=== PATIENT | male | born 1935 | race Caucasian/White ===

== ENCOUNTER 2017-03-13 08:55 | Inpatient (IN) | payer MEDICARE, OTHER ==
[~2017-03-13] VITALS: Ht 170.2 cm; Wt 62.5 kg
[~2017-03-13 08:55] MED LIST: AMLO-147 PO; ATOR20TA38 PO; COU2 PO; FURO40TA4 PO; ISOS60TA PO; MAGN400T28 PO; METO25TA7 PO; TAMS-14 PO; TRAM50TA2 PO
--- NOTE | 2017-03-13 09:40 | RADRPT ---
PROCEDURE: XR Chest. CLINICAL INDICATION: shortness of breath TECHNIQUE: Single portable view of the chest was obtained COMPARISON: 12/07/2015 FINDINGS: There is moderate cardiomegaly. The thoracic aorta is calcified. There is mild pulmonary vascular congestion. There are bilateral perihilar and lower lobe infiltrat es and small bilateral pleural effusions. There is no pneumothorax. The bones and soft tissues are unremarkable. RPTAT: AA IMPRESSION: Moderate cardiomegaly with mild pulmonary vascular congestion. .Wilber Morse MD, MD Date Time Electronically viewed and signed by .Wilber Morse MD, on 03/13/2017 09:40 .S/
[2017-03-13 09:44] LABS: ADD SCAN DIFF NO
[2017-03-13 09:47] LABS: BASOPHILS % 0.4 % (0.0-2.0); EOSINOPHILS % 0.3 % (0.0-7.0); HEMATOCRIT 36.8 % (42.0-52.0); HEMOGLOBIN 11.2 g/dl (14.0-18.0); LYMPHOCYTES # 1.6 10^3/ul (0.8-2.9); LYMPHOCYTES % 24.5 % (15.0-51.0); MEAN CORPUSCULAR HEMOGLOBIN 26.8 pg (29.0-33.0); MEAN CORPUSCULAR HGB CONC 30.4 g/dl (32.0-37.0); MEAN PLATELET VOLUME 11.8 fl (7.4-10.4); MONOCYTE # 0.5 10^3/ul (0.3-0.9); MONOCYTES % 7.5 % (0.0-11.0); NEUTROPHIL # 4.5 10^3/ul (1.6-7.5); NEUTROPHILS % 66.9 % (39.0-77.0); PLATELET COUNT 203 10^3/UL (140-415); RED BLOOD COUNT 4.18 10^6/ul (4.70-6.10); RED CELL DISTRIBUTION WIDTH 18.2 % (11.5-14.5); WHITE BLOOD COUNT 6.7 10^3/ul (4.8-10.8)
[2017-03-13] MEDS ORDERED: DIPHTH/TET/ACEL PERTUSS (ADULT) 0.5 ML VIAL IM* ONE (10:00)
[2017-03-13 10:06] LABS: ALBUMIN 4.3 g/dl (3.3-4.9); ALBUMIN/GLOBULIN RATIO 1.13; BILIRUBIN,INDIRECT 1.1 mg/dl (0-1.1); BILIRUBIN,TOTAL 1.1 mg/dl (0.2-1.3); CALCIUM 9.5 mg/dl (8.4-10.2); CREATININE 1.22 mg/dl (0.61-1.24); POTASSIUM 4.7 mmol/L (3.5-5.1); TOTAL PROTEIN 8.1 g/dl (6.1-8.1)
[2017-03-13 10:18] LABS: TROPONIN-I 0.046 ng/ml (0.00-0.12)
--- NOTE | 2017-03-13 10:21 | RADRPT ---
PROCEDURE: CT Brain without contrast. CLINICAL INDICATION: Headache status post fall TECHNIQUE: A CT of the brain was performed on a multidetector CT scanner utilizing axial sections from the skull base through the vertex without contrast. Images were reviewed on a high-resolution After[employer] workstation. Exam CTDI = 44.19 mGy and the DLP = 630.20 mGy-cm. One or more of the following dose reduction techniques were used: Automated exposure control Adjustment of the mA and/or kV according to patient size. Use of iterative reconstruction technique. COMPARISON: None available FINDINGS: Mild diffuse cerebral and cerebellar atrophy is present. There is proportionate dilatation of the v entricular system and sulci in a symmetric fashion. There is prominence of the extraaxial spaces sec ondary to atrophy. There is no evidence of intracranial hemorrhage, mass effect or midline shift. Th ere is old infarct in the right frontal lobe extending into the frontal operculum. There are small chronic lacunar infarcts in bilateral cerebellar hemispheres. There is a small focus of chronic lac unar infarct in the right coronal radiata. Chronic lacunar infarcts are also seen in bilateral basa l ganglia and thalami. No abnormal intra-axial or extra-axial fluid collections are seen. The densi ty of the brain is normal and the curran/white matter differentiation is well preserved. Mild patchy diffuse deep white matter microangiopathic ischemic change is seen. The osseous structures are u nremarkable. Paranasal sinuses are clear. Vascular calcifications are identified. IMPRESSION: 1. No intracranial hemorrhage, mass effect or midline shift. 2. Mild generalized atrophy. Mild microangiopathic ischemic change. 3. Chronic infarct in the right frontal lobe extending into the frontal operculum. 4. Chronic lacunar infarcts in bilateral basal ganglia , thalami and right arriaga radiata. 5. Intracranial atherosclerosis. RPTAT: BB .Valentín Dubose MD, MD Date Time Electronically viewed and signed by .Valentín Dubose MD, MD on 03/13/2017 10:21 .O/
[2017-03-13] MEDS ORDERED: FUROSEMIDE 40 MG INJ IV ONE (10:30)
[2017-03-13] MEDS ORDERED: ACETAMINOPHEN 325 MG TAB PO PRN ×2 (11:30→12:30)
[2017-03-13] MEDS ORDERED: ONDANSETRON 4 MG INJ IV PRN ×2 (11:30→12:30)
[2017-03-13] MEDS ORDERED: LOSA50TA6 PO (12:19)
[2017-03-13] MEDS ORDERED: SENN-53 PO (12:20)
[2017-03-13] MEDS ORDERED: AMIO200T2 PO (12:20)
[2017-03-13] MEDS ORDERED: HYDR-906 PO (12:21)
[2017-03-13] MEDS ORDERED: ERGO500037 PO (12:22)
[2017-03-13] MEDS ORDERED: ZOLP10TA5 PO (12:22)
[2017-03-13 12:23] LABS: INR 1.17; PT RATIO 1.2
[2017-03-13] MEDS ORDERED: PYRI50TA80 PO (12:23)
[2017-03-13] MEDS ORDERED: ALBUTEROL/IPRATROPIUM (NEB) 3 ML AMP HHN PRN ×2 (12:30→17:00)
[2017-03-13] MEDS ORDERED: HYDROCODONE/APAP (5/325) TAB PO PRN ×2 (12:30)
[2017-03-13] MEDS ORDERED: NACL 0.9% 3 ML SYG IV SCH (12:30)
[2017-03-13] MEDS ORDERED: morphine 2 MG INJ IV PRN (12:30)
--- NOTE | 2017-03-13 12:41 | ERA ---
ER Documentation Chief Complaint Date/Time DATE: 03/13/17 TIME: 12:39 Chief Complaint INCREASING SOB FOR THE PAST FEW DAYS. NO DISTRESS NOTED. NO FEVERS. NO CP HPI 81-year-old male with history of chronic kidney disease, ischemic cardiomyopathy , atrial fibrillation on Coumadin and congestive heart failure brought to the ED by his son for evaluation of 4-5 day history of worsening shortness of breath which become severe since yesterday. Patient denies chest pain or palpitations. Increasing dyspnea with orthopnea and exertional dyspnea but no PND. No URI symptoms or cough. No abdominal pain, nausea or vomiting. Mild lower extremity swelling but no calf pain or redness. Denies headache, visual changes, focal weakness or numbness. No fevers or chills. Son also noticed that recently the patient has had episodes of forgetfulness and this afternoon could not remember the son's name. ROS All systems reviewed and are negative except as per history of present illness. Medications Home Meds Active Scripts Magnesium Oxide* (Magnesium Oxide*) 400 Mg Tablet, 400 MG PO DAILY, #90 TAB Prov:JIL LEAVITT MD 12/07/15 Reported Medications Pyridoxine Hcl (Vitamin B6) 50 Mg Tab, 50 MG PO DAILY, TAB 03/13/17 Ergocalciferol (Vitamin D2) (VITAMIN D2) 50,000 Unit Capsule, 82800 UNIT PO EVERY THURSDAY, CAP 03/13/17 Zolpidem Tartrate* (Zolpidem Tartrate*) 10 Mg Tablet, 10 MG PO QHS Y for INSOMNIA, #30 TAB 03/13/17 Hydrocodone/Acetaminophen ([place] 5-325 Tablet) 1 Each Tablet, 1 EACH PO BID Y for PAIN, TAB 03/13/17 Amiodarone Hcl* (Amiodarone Hcl*) 200 Mg Tablet, 200 MG PO DAILY, #30 TAB 03/13/17 Sennosides* (Senna Lax*) 8.6 Mg Tablet, 1 TAB PO BID, TAB 03/13/17 Losartan Potassium* (Losartan Potassium*) 50 Mg Tablet, 50 MG PO BID, TAB 03/13/17 Amlodipine Besylate* (Amlodipine Besylate*) 10 Mg Tablet, 10 MG PO DAILY, #30 TAB 12/05/15 Tamsulosin Hcl* (Flomax*) 0.4 Mg Cap.er.24h, 0.4 MG PO HS, CAP 12/05/15 Furosemide* (Furosemide*) 40 Mg Tablet, 40 MG PO DAILY, TAB 12/05/15 Discontinued Reported Medications Isosorbide Mononitrate* (Isosorbide Mononitrate*) 60 Mg Tab.er.24h, 60 MG PO DAILY, TAB 12/05/15 Atorvastatin Calcium* (Atorvastatin Calcium*) 20 Mg Tablet, 20 MG PO QHS, #30 TAB 12/05/15 Discontinued Scripts Tramadol HCl (Tramadol HCl) 50 Mg Tablet, 50 MG PO Q4 Y for PAIN, #15 TAB Prov:COSME ESCOBAR MD 07/27/16 Metoprolol Succinate* (Toprol XL*) 25 Mg Tab.sr.24h, 25 MG PO DAILY, #30 TAB 3 Refills Prov:JIL LEAVITT MD 12/07/15 Warfarin Sod (Coumadin) 2 Mg Tab, 2 MG PO DAILY@17, #20 TAB Prov:JIL LEAVITT MD 12/07/15 Allergies Allergies: Coded Allergies: No Known Allergy (Unverified , 03/13/17) PMhx/Soc Reviewed in chart. As per HPI. History of Surgery: No Anesthesia Reaction: No Hx Neurological Disorder: Yes (CVA 15YS AGO) Hx Respiratory Disorders: Yes (COPD) Hx Cardiac Disorders: Yes (A-FIB,HTN) Hx Psychiatric Problems: No Hx Miscellaneous Medical Probl: Yes (CHF, htn) Hx Alcohol Use: No Hx Substance Use: No Hx Tobacco Use: No Smoking Status: Never smoker FmHx Hypertension but no stroke or cancer Physical Exam Vitals Vital Signs Date Time Temp Pulse Resp B/P Pulse Ox O2 Delivery O2 Flow Rate FiO2 03/13/17 10:24 99 20 196/117 99 Nasal Cannula 3.0 03/13/17 09:29 Nasal Cannula 2 03/13/17 08:58 98.6 99 24 215/116 99 Physical Exam Const: Alert, elderly, moderate distress Head: Atraumatic Eyes: Normal Conjunctiva ENT: Normal External Ears, Nose and Mouth. Neck: Full range of motion. Nontender. JVD. Resp: Breath sounds equal bilaterally with rales correction up both lung gray. No wheezes. Cardio: Irregular rate and rhythm, no murmurs Abd: Soft, non tender, non distended. Normal bowel sounds Skin: No petechiae or rashes Back: No midline or flank tenderness Ext: 1+ edema. No calf swelling or tenderness. Neur: Awake and alert. No focal deficit observed. Psych: Normal Mood and Affect. Patient does not appear anxious or depressed. Result Diagram: 03/13/17 0930 03/13/17 0930 Results 24 hrs Laboratory Tests Test 03/13/17 09:30 03/13/17 10:26 White Blood Count 6.710^3/ul Red Blood Count 4.1810^6/ul Hemoglobin 11.2g/dl Hematocrit 36.8% Mean Corpuscular Volume 88.0fl Mean Corpuscular Hemoglobin 26.8pg Mean Corpuscular Hemoglobin Concent 30.4g/dl Red Cell Distribution Width 18.2% Platelet Count 70547^3/UL Mean Platelet Volume 11.8fl Neutrophils % 66.9% Lymphocytes % 24.5% Monocytes % 7.5% Eosinophils % 0.3% Basophils % 0.4% Nucleated Red Blood Cells % 0.0/100WBC Neutrophils # 4.510^3/ul Lymphocytes # 1.610^3/ul Monocytes # 0.510^3/ul Eosinophils # 0.010^3/ul Basophils # 0.010^3/ul Nucleated Red Blood Cells # 0.010^3/ul Sodium Level 138mmol/L Potassium Level 4.7mmol/L Chloride Level 104mmol/L Carbon Dioxide Level 24mmol/L Anion Gap 15 Blood Urea Nitrogen 24mg/dl Creatinine 1.22mg/dl Glucose Level 117mg/dl Calcium Level 9.5mg/dl Magnesium Level 1.8mg/dl Total Bilirubin 1.1mg/dl Direct Bilirubin 0.00mg/dl Indirect Bilirubin 1.1mg/dl Aspartate Amino Transf (AST/SGOT) 36IU/L Alanine Aminotransferase (ALT/SGPT) 31IU/L Alkaline Phosphatase 77IU/L Troponin I 0.046ng/ml B-Type Natriuretic Peptide 5840PG/ML Total Protein 8.1g/dl Albumin 4.3g/dl Globulin 3.80g/dl Albumin/Globulin Ratio 1.13 Prothrombin Time 15.0Sec Prothrombin Time Ratio 1.2 INR International Normalized Ratio 1.17 Current Medications Medications (Trade) Dose Ordered Sig/Teressa Route PRN Reason Start Time Stop Time Status Last Admin Dose Admin Diphtheria/ Tetanus/Acell Pertussis (Adacel) 0.5 ml ONCE ONCE IM* 03/13/17 10:00 03/13/17 10:01 DC 03/13/17 10:31 Furosemide (Lasix) 40 mg ONCE ONCE IV 03/13/17 10:30 03/13/17 10:31 DC 03/13/17 10:30 Ondansetron HCl (Zofran Inj) 4 mg ER BRIDGE PRN IV NAUSEA AND/OR VOMITING 03/13/17 11:30 03/13/17 13:57 DC Acetaminophen (Tylenol Tab) 650 mg ER BRIDGE PRN PO MILD PAIN/FEVER 03/13/17 11:30 03/13/17 13:57 DC EKG: TIME: 09:25. Atrial fibrillation. Nonspecific ST-T wave changes. No acute ST segment elevation or depression. EP Interpretation: Abnormal EKG. IMAGING: PROCEDURE: XR Chest. CLINICAL INDICATION: shortness of breath TECHNIQUE: Single portable view of the chest was obtained COMPARISON: 12/07/2015 FINDINGS: There is moderate cardiomegaly. The thoracic aorta is calcified. There is mild pulmonary vascular congestion. There are bilateral perihilar and lower lobe infiltrates and small bilateral pleural effusions. There is no pneumothorax. The bones and soft tissues are unremarkable. RPTAT: AA IMPRESSION: Moderate cardiomegaly with mild pulmonary vascular congestion. .Wilber Morse MD, MD Date Time Electronically viewed and signed by .Wilber Morse MD, MD on 03/13/2017 09: 40 .S/ Procedures/MDM DOCUMENTS REVIEWED: ED nurse, prior ED, prior records including admission history and physical, progress notes and discharge summary November/2015 MEDICAL DECISION MAKIN-year-old male with history of hypertension, chronic kidney disease, ischemic cardiomyopathy, atrial fibrillation on Coumadin and congestive heart failure brought to the ED by his son for evaluation of 4-5 day history of worsening shortness of breath which become severe since yesterday. Patient presents with acute congestive heart failure, diastolic treated with diuretics. Recent confusion and forgetfulness likely secondary to dementia. No headache, focal deficits or indication for neuroimaging. Chronic kidney disease. No fever, leukocytosis or signs of an occult infectious process. No ischemic EKG changes, elevated troponin or acute coronary syndrome. Admit to telemetry for diuresis, further evaluation and management. Counseled patient and family regarding diagnosis, diagnostic results and plan for admission. CALLS/CONSULTS: Time 11:15, Dr. Oumar Thakkar, Recommends admission to telemetry. PATIENT CARE TRANSITIONED: Time: 11:30, Dr. Oumar Thakkar. Departure Diagnosis: Primary Impression: Acute decompensated heart failure Additional Impressions: Chronic atrial fibrillation Chronic kidney disease Qualified Code: N18.9 - Chronic kidney disease, unspecified stage Hypertension Qualified Code: I10 - Essential hypertension Condition: Serious ANTONIO HOLLIDAY MD March 13, 2017 12:41 Ondansetron HCl (Zofran Inj) 4 mg Q4H PRN IV NAUSEA AND/OR VOMITING 03/13/17 12:30 Acetaminophen (Tylenol Tab) 650 mg Q6H PRN PO PAIN LEVEL 1-3 OR FEVER 03/13/17 12:30 Acetaminophen/ Hydrocodone Bitart ([place] (5/325)) 1 tab Q6H PRN PO MODERATE PAIN LEVEL 4-6 03/13/17 12:30 Morphine Sulfate (morphine) 2 mg Q4H PRN IV SEVERE PAIN LEVEL 7-10 03/13/17 12:30 Famotidine (Pepcid Iv) 20 mg QHS IV 03/13/17 21:00 Heparin Sodium (Porcine) (Heparin (5000 Units/0.5 ml)) 5,000 unit Q12 SC 03/13/17 21:00 Albuterol/ Ipratropium (Duoneb) 3 ml Q2H RESP THERAPY PRN HHN SHORTNESS OF BREATH 03/13/17 12:30 EKG: TIME: 09:25. Atrial fibrillation. Nonspecific ST-T wave changes. No acute ST segment elevation or depression. EP Interpretation: Abnormal EKG. IMAGING: PROCEDURE: XR Chest. CLINICAL INDICATION: shortness of breath TECHNIQUE: Single portable view of the chest was obtained COMPARISON: 12/07/2015 FINDINGS: There is moderate cardiomegaly. The thoracic aorta is calcified. There is mild pulmonary vascular congestion. There are bilateral perihilar and lower lobe infiltrates and small bilateral pleural effusions. There is no pneumothorax. The bones and soft tissues are unremarkable. RPTAT: AA IMPRESSION: Moderate cardiomegaly with mild pulmonary vascular congestion. .Wilber Morse MD, MD Date Time Electronically viewed and signed by .Wilber Morse MD, on 03/13/2017 09: 40 .S/ Procedures/MDM DOCUMENTS REVIEWED: ED nurse, prior ED, prior records including admission history and physical, progress notes and discharge summary November/2015 MEDICAL DECISION MAKIN-year-old male with history of hypertension, chronic kidney disease, ischemic cardiomyopathy, atrial fibrillation on Coumadin and congestive heart failure brought to the ED by his son for evaluation of 4-5 day history of worsening shortness of breath which become severe since yesterday. Patient presents with acute congestive heart failure, diastolic treated with diuretics. Recent confusion and forgetfulness likely secondary to dementia. No headache, focal deficits or indication for neuroimaging. Chronic kidney disease. No fever, leukocytosis or signs of an occult infectious process. No ischemic EKG changes, elevated troponin or acute coronary syndrome. Patient be admitted to telemetry for further evaluation and management. Counseled patient and family regarding diagnosis, diagnostic results and plan for admission. CALLS/CONSULTS: Time 11:15, Dr. Oumar Thakkar, Recommends admission to telemetry. PATIENT CARE TRANSITIONED: Time: 11:30, Dr. Oumar Thakkar. Departure Diagnosis: Primary Impression: Acute decompensated heart failure Additional Impressions: Chronic atrial fibrillation Chronic kidney disease Qualified Code: N18.9 - Chronic kidney disease, unspecified stage Hypertension Qualified Code: I10 - Essential hypertension ANTONIO HOLLIDAY MD March 13, 2017 12:41
[2017-03-13] MEDS ORDERED: NITROGLYCERIN 2% 1 GM OINT PKT TD STA (15:27)
[2017-03-13] MEDS ORDERED: ENALAPRILAT 1.25 MG INJ IV STA (15:28)
[2017-03-13 15:32] LABS: ADD UMIC YES; URINE BILIRUBIN (Dip) NEGATIVE (NEGATIVE); URINE BLOOD (Dip) TRACE (NEGATIVE); URINE COLOR LT. YELLOW (YELLOW); URINE GLUCOSE (Dip) NEGATIVE (NEGATIVE); URINE KETONES (Dip) NEGATIVE (NEGATIVE); URINE LEUKOCYTE ESTERASE (Dip) NEGATIVE (NEGATIVE); URINE NITRITE (Dip) NEGATIVE (NEGATIVE); URINE TOTAL PROTEIN (Dip) NEGATIVE (NEGATIVE); URINE UROBILINOGEN (Dip) 0.2 E.U./dL (0.1-1.0)
[2017-03-13 15:52] LABS: URINE RBCS 0-2 /HPF (0)
[2017-03-13] MEDS: LOSARTAN 50 MG TAB PO SCH (16:42)
[2017-03-13] MEDS: AMIODARONE 200 MG TAB PO SCH (16:42)
[2017-03-13] MEDS: AMLODIPINE 10 MG TAB PO SCH (16:43)
[2017-03-13] MEDS: PYRIDOXINE 50 MG TAB PO SCH (16:43)
[2017-03-13] MEDS ORDERED: hydrALAzine 20 MG INJ IV PRN (17:00)
[2017-03-13] MEDS ORDERED: NIFEdipine (XL) 60 MG TAB PO SCH (17:00)
[2017-03-13] MEDS: SENNA TAB PO SCH ×2 (17:11→21:44)
--- NOTE | 2017-03-13 17:21 | HP ---
DATE OF ADMISSION: 03/13/2017 CHIEF COMPLAINT: Shortness of breath. REASON FOR ADMISSION: Acute congestive heart failure exacerbation, acute pulmonary edema secondary to hypertensive crises and hypertensive emergency. HISTORY OF PRESENT ILLNESS: This is an 81-year-old male with a past medical history of a CVA 15 yea rs ago, history of hypertension, COPD, history of atrial fibrillation, history of congestive heart f ailure, history of BPH and had prostate surgery 10 years ago, who presented with a complaint of shor tness of breath. In the emergency room, the patient is noted to have cardiomegaly with mild pulmona ry congestion on chest x-ray. He also is noted to have severely elevated blood pressure of 215/116 on admission. The patient was in hypertensive crisis along with the pulmonary edema secondary to un controlled hypertension. He also had possible congestive heart failure exacerbation, which could be diastolic versus systolic. The patient received IV Lasix in the emergency room and he is getting a dmitted to the telemetry floor for further workup. At the time of my evaluation, he denies any chest pain, palpitations, headache, dizziness, blurry vi burton, constipation, diarrhea, dysuria, increased urinary frequency. REVIEW OF SYSTEMS: Positive for shortness of breath and mild chest discomfort. Other review of sys tems has been obtained and is negative except what is mentioned in the history of present illness. PAST MEDICAL HISTORY: Notable for hypertension, atrial fibrillation, COPD, history of CVA 15 years ago, CHF. PAST SURGICAL HISTORY: History of prostate surgery 10 years ago. SOCIAL HISTORY: No smoking, alcohol or recreational drug use. FAMILY HISTORY: Noncontributory. PHYSICAL EXAMINATION: VITAL SIGNS: Temperature 98.6, heart rate 101, respirations 20, blood pressure is 215/116, saturati on 99% on 2 liters nasal cannula. GENERAL: Awake, alert, in moderate to severe distress. HEENT: Normal. Oropharynx clear. NECK: Jugular venous distention up to the mid neck. No lymphadenopathy. LUNGS: Bibasilar crackles present with minimal expiratory wheezing. HEART: S1, S2, irregularly irregular. ABDOMEN: Soft, nontender, nondistended. Bowel sounds are present. EXTREMITIES: No clubbing, cyanosis, or edema. NEUROLOGICAL: Nonfocal, intact. PSYCHIATRIC: Appropriate affect and mood. LABORATORY DATA/DIAGNOSTIC IMAGIN. WBC 6.7, hemoglobin 11.2, platelet count 203. Sodium 138, potassium 4.7, chloride 104, bicarbon ate 24, BUN 24, creatinine 1.2, glucose 117, calcium 9.5. LFTs are normal. Albumin is 4.3, magnesi um 1.8. PT 15, INR 1.17. Urinalysis is negative for any acute findings. 2. Chest x-ray shows pulmonary congestion with cardiomegaly. 3. CT head without contrast shows chronic lacunar infarcts in the right frontal lobe and bilateral basal ganglia and also has intracranial atherosclerosis. IMPRESSION: This is an 81-year-old male who presented with: 1. Hypertensive crisis. 2. Acute hypoxic respiratory distress secondary to acute congestive heart failure exacerbation caus ing acute pulmonary edema. 3. Acute pulmonary edema secondary to acute congestive heart failure exacerbation. 4. History of congestive heart failure. 5. History of hypertension. 6. History of atrial fibrillation, on Coumadin. 7. History of ischemic cardiomyopathy and history of chronic kidney disease. 8. History of chronic obstructive pulmonary disease. PLAN: 1. Admission to the telemetry floor. I will start the patient on IV Lasix 40 mg IV b.i.d. Continue his home medications of amlodipine and losartan 50 mg p.o. b.i.d. I will give the patient Procardi a-XL 60 mg p.o. daily for better blood pressure control and also use IV hydralazine 20 mg q.4 hours p.r.n. systolic blood pressure more than 150. 2. Continue the amiodarone for rate control. Currently there is no Coumadin on the medication list , so we will get information from the patient's family to verify if the patient was on Coumadin or n ot because he will need anticoagulation for his atrial fibrillation. 3. Heparin for deep venous thrombosis prophylaxis and Pepcid for gastrointestinal prophylaxis. 4. IV Lasix 40 mg b.i.d. for better diuresis. The patient is currently seen in the emergency room and he is still waiting for placement. We will order PT evaluation and treatment, and case manageme nt consult for further social issues and other help from the family. The patient is currently seen in the emergency room and he will be followed up along with his course in the hospital. Total time spent in this patient evaluation, making assessment and plan, and communication with the family and the nursing at bedside, took more than 90 minutes. Dictated By: DANIA VELASQUEZ MD, KP/STONEY Conf#: [id number] DID#: [id number]
[2017-03-13] MEDS: FUROSEMIDE 40 MG INJ IV SCH (18:37)
[2017-03-13 20:23] VITALS: PULSE 81
[2017-03-13] MEDS ORDERED: FAMOTIDINE 20 MG INJ IV SCH (21:00)
[2017-03-13 21:08] VITALS: BP 83/51; RESP 20
[2017-03-13 21:40] VITALS: BP 96/59; PULSE 78
[2017-03-13] MEDS: TAMSULOSIN (SR) 0.4 MG CAP PO SCH (21:43)
[2017-03-13] MEDS: FAMOTIDINE 20 MG INJ IV SCH (21:43)
[2017-03-13 21:45] VITALS: Ht 170.2 cm; Wt 62.5 kg
[2017-03-13] MEDS: HEPARIN 5,000 UNIT/0.5 ML VIAL SC SCH (21:50)
[2017-03-13] MEDS ORDERED: LORAZEPAM 2 MG INJ IV PRN (22:45)
[2017-03-13] MEDS ORDERED: ALBUMIN HUMAN 25% 100 ML IV ONE (22:45)
[2017-03-14] VITALS (14 sets, daily range): BP systolic 84–123; BP diastolic 51–85; PULSE 81–128; RESP 18–20
[2017-03-14] MEDS: FUROSEMIDE 40 MG INJ IV SCH (06:00)
[2017-03-14 08:34] LABS: ADD SCAN DIFF NO
[2017-03-14 08:42] LABS: BASOPHILS % 0.1 % (0.0-2.0); EOSINOPHILS % 0.4 % (0.0-7.0); HEMOGLOBIN 9.7 g/dl (14.0-18.0); LYMPHOCYTES # 1.3 10^3/ul (0.8-2.9); LYMPHOCYTES % 19.1 % (15.0-51.0); MEAN CORPUSCULAR HEMOGLOBIN 26.6 pg (29.0-33.0); MEAN CORPUSCULAR HGB CONC 30.3 g/dl (32.0-37.0); MEAN CORPUSCULAR VOLUME 87.9 fl (82.0-101.0); MEAN PLATELET VOLUME 11.7 fl (7.4-10.4); MONOCYTE # 0.5 10^3/ul (0.3-0.9); MONOCYTES % 7.9 % (0.0-11.0); NEUTROPHIL # 4.8 10^3/ul (1.6-7.5); NEUTROPHILS % 72.2 % (39.0-77.0); PLATELET COUNT 180 10^3/UL (140-415); RED BLOOD COUNT 3.64 10^6/ul (4.70-6.10); RED CELL DISTRIBUTION WIDTH 17.5 % (11.5-14.5); WHITE BLOOD COUNT 6.7 10^3/ul (4.8-10.8)
[2017-03-14 09:14] LABS: ALBUMIN 3.6 g/dl (3.3-4.9); ALBUMIN/GLOBULIN RATIO 1.28; BILIRUBIN,INDIRECT 0.8 mg/dl (0-1.1); BILIRUBIN,TOTAL 0.8 mg/dl (0.2-1.3); CREATININE 1.79 mg/dl (0.61-1.24); POTASSIUM 3.9 mmol/L (3.5-5.1); TOTAL PROTEIN 6.4 g/dl (6.1-8.1)
[2017-03-14] MEDS: FAMOTIDINE 20 MG INJ IV SCH ×2 (10:44→21:14)
[2017-03-14] MEDS: AMIODARONE 200 MG TAB PO SCH (10:45)
[2017-03-14] MEDS: LOSARTAN 50 MG TAB PO SCH (10:45)
[2017-03-14] MEDS: AMLODIPINE 10 MG TAB PO SCH (10:46)
[2017-03-14] MEDS: MAGNESIUM OXIDE 400 MG TAB PO SCH (10:46)
[2017-03-14] MEDS: PYRIDOXINE 50 MG TAB PO SCH (10:46)
[2017-03-14] MEDS: HEPARIN 5,000 UNIT/0.5 ML VIAL SC SCH ×2 (10:47→21:16)
--- NOTE | 2017-03-14 15:24 | PN ---
Date/Time of Note Date/Time of Note DATE: 03/14/17 TIME: 15:19 Assessment/Plan VTE Prophylaxis VTE Prophylaxis Intervention: heparin Lines/Catheters IV Catheter Type (from [email or web address] [place] Lock Assessment/Plan Assessment/Plan 1. Hypertensive crisis.- now becomes hypotensive 2. Acute hypoxic respiratory distress secondary to acute congestive heart failure exacerbation causing acute pulmonary edema. 3. Acute pulmonary edema secondary to acute congestive heart failure exacerbation. 4. History of congestive heart failure. 5. History of hypertension. 6. History of atrial fibrillation, on Coumadin. 7. History of ischemic cardiomyopathy and history of chronic kidney disease. 8. History of chronic obstructive pulmonary disease. PLAN: pt becomes hypotensive after receiving multiple BP meds for HTN crisis- Now BP 88/47- given IV albumin today, will give D51/2 NS at 75 cc/hr x 1 liter D/c lasix, Hold Amlodipine, procardia XL and MTP Change IV ativan to Q8 hr Protonix for GI prophylaxis Heparin for DVT prophylaxis will check with family about coumadin for atrial fibrillation Subjective 24 Hr Interval Summary Free Text/Dictation pt received one dose of ativan overnight, BP has been low 88/49, Currently sleeping, no SOB, Exam/Review of Systems Vital Signs Vitals Vital Signs Date Time Temp Pulse Resp B/P Pulse Ox O2 Delivery O2 Flow Rate FiO2 03/14/17 12:13 97.8 105 18 88/54 94 03/14/17 08:10 Nasal Cannula 2.0 Intake and Output 03/13/17 03/13/17 03/14/17 15:00 23:00 07:00 Intake Total 340 ml Output Total 300 ml Balance 40 ml Exam GENERAL: arousable, sleeping HEENT: Normal. Oropharynx clear. NECK: Jugular venous distention up to the mid neck. No lymphadenopathy. LUNGS: Bibasilar crackles present with minimal expiratory wheezing. HEART: S1, S2, irregularly irregular. ABDOMEN: Soft, nontender, nondistended. Bowel sounds are present. EXTREMITIES: No clubbing, cyanosis, or edema. NEUROLOGICAL: Nonfocal, intact. PSYCHIATRIC: Appropriate affect and mood. Results Result Diagram: 03/14/17 0735 03/14/17 0735 Results 24 hrs Laboratory Tests Test 03/14/17 07:35 White Blood Count 6.7 Red Blood Count 3.64 L Hemoglobin 9.7 L Hematocrit 32.0 L Mean Corpuscular Volume 87.9 Mean Corpuscular Hemoglobin 26.6 L Mean Corpuscular Hemoglobin Concent 30.3 L Red Cell Distribution Width 17.5 H Platelet Count 180 Mean Platelet Volume 11.7 H Neutrophils % 72.2 Lymphocytes % 19.1 Monocytes % 7.9 Eosinophils % 0.4 Basophils % 0.1 Nucleated Red Blood Cells % 0.0 Neutrophils # 4.8 Lymphocytes # 1.3 Monocytes # 0.5 Eosinophils # 0.0 Basophils # 0.0 Nucleated Red Blood Cells # 0.0 Sodium Level 140 Potassium Level 3.9 Chloride Level 104 Carbon Dioxide Level 25 Anion Gap 15 Blood Urea Nitrogen 31 H Creatinine 1.79 H Glucose Level 117 Calcium Level 9.0 Total Bilirubin 0.8 Direct Bilirubin 0.00 Indirect Bilirubin 0.8 Aspartate Amino Transf (AST/SGOT) 18 Alanine Aminotransferase (ALT/SGPT) 26 Alkaline Phosphatase 67 Total Protein 6.4 # Albumin 3.6 Globulin 2.80 Albumin/Globulin Ratio 1.28 Medications Medications Current Medications Amiodarone HCl (Cordarone) 200 mg DAILY PO Last administered on 03/14/17 10:45 ; Admin Dose 200 MG; Start 03/13/17 at 17:00 Magnesium Oxide (Mag-Ox 400) 400 mg DAILY PO Last administered on 03/14/17 10: 46; Admin Dose 400 MG; Start 03/14/17 at 09:00 Pyridoxine HCl (Vitamin B6) 50 mg DAILY PO Last administered on 03/14/17 10:46 ; Admin Dose 50 MG; Start 03/13/17 at 17:00 Senna (Senokot) 1 tab BID PO Last administered on 03/13/17 21:44; Admin Dose 1 TAB; Start 03/13/17 at 17:00 Tamsulosin HCl (Flomax) 0.4 mg HS PO Last administered on 03/13/17 21:43; Admin Dose 0.4 MG; Start 03/13/17 at 21:00 Zolpidem Tartrate (Ambien) 5 mg QHS PRN PO INSOMNIA; Start 03/13/17 at 12:30 Ondansetron HCl (Zofran Inj) 4 mg Q4H PRN IV NAUSEA AND/OR VOMITING; Start 03/13 at 12:30 Acetaminophen (Tylenol Tab) 650 mg Q6H PRN PO PAIN LEVEL 1-3 OR FEVER; Start at 12:30 Acetaminophen/ Hydrocodone Bitart ([place] (5/325)) 1 tab Q6H PRN PO MODERATE PAIN LEVEL 4-6; Start 03/13/17 at 12:30 Morphine Sulfate (morphine) 2 mg Q4H PRN IV SEVERE PAIN LEVEL 7-10; Start at 12:30 Heparin Sodium (Porcine) (Heparin (5000 Units/0.5 ml)) 5,000 unit Q12 SC Last administered on 03/14/17 10:47; Admin Dose 5,000 UNIT; Start 03/13/17 at 21:00 Hydralazine HCl (Apresoline) 20 mg Q4 PRN IV SBP>150 mm Hg ; Start 03/13/17 at 17:00 Famotidine (Pepcid Iv) 20 mg BID IV Last administered on 03/14/17 10:44; Admin Dose 20 MG; Start 03/13/17 at 21:00 Lorazepam (Ativan) 1 mg Q8H PRN IV AGITATION; Start 03/14/17 at 22:45; Status DANIA BECKER MD March 14, 2017 15:24
[2017-03-14] MEDS ORDERED: hydrALAzine 20 MG INJ IV PRN (15:30)
[2017-03-14] MEDS ORDERED: DEXTROSE 5%-0.45% NACL 1,000 ML IV SCH (15:30)
[2017-03-14] MEDS: TAMSULOSIN (SR) 0.4 MG CAP PO SCH (21:14)
[2017-03-14] MEDS: SENNA TAB PO SCH (21:14)
[2017-03-14] MEDS: LORAZEPAM 2 MG INJ IV PRN (21:14)
[2017-03-14] MEDS: ZOLPIDEM 5 MG TAB PO PRN (21:56)
[2017-03-15] VITALS (13 sets, daily range): BP systolic 122–142; BP diastolic 56–89; PULSE 84–112; RESP 18–19
[2017-03-15] MEDS: LORAZEPAM 2 MG INJ IV PRN (04:42)
[2017-03-15] MEDS: FAMOTIDINE 20 MG INJ IV SCH (08:36)
[2017-03-15] MEDS: HEPARIN 5,000 UNIT/0.5 ML VIAL SC SCH ×2 (08:37→22:18)
[2017-03-15] MEDS: AMIODARONE 200 MG TAB PO SCH ×2 (08:47→22:09)
[2017-03-15] MEDS: PYRIDOXINE 50 MG TAB PO SCH (08:47)
[2017-03-15] MEDS: SENNA TAB PO SCH ×2 (08:47→22:10)
[2017-03-15] MEDS: MAGNESIUM OXIDE 400 MG TAB PO SCH (08:47)
[2017-03-15] MEDS ORDERED: AMLODIPINE 5 MG TAB PO ONE (14:00)
--- NOTE | 2017-03-15 14:01 | PN ---
Date/Time of Note Date/Time of Note DATE: 03/15/17 TIME: 13:57 Assessment/Plan VTE Prophylaxis VTE Prophylaxis Intervention: heparin Lines/Catheters IV Catheter Type (from Nrs): Saline Lock Assessment/Plan Assessment/Plan 1. Hypertensive crisis.- now becomes hypotensive - today Bp stable 2. acute delirium requiring restraints and sitter due to CHF 2. Acute hypoxic respiratory distress secondary to acute congestive heart failure exacerbation causing acute pulmonary edema. 3. Acute pulmonary edema secondary to acute congestive heart failure exacerbation. 4. History of congestive heart failure. 5. History of hypertension. 6. History of atrial fibrillation, on Coumadin.- currenlty on amiodarone for rate control 7. History of ischemic cardiomyopathy and history of chronic kidney disease. 8. History of chronic obstructive pulmonary disease. PLAN: pt become hypotensive all Antihypertensives were stopped,t walter BP stable, will start amlodipine 5 mg daily at a time, cozaar still on hold Atrial firbillation wtih HR in 100s-increase amiodarone [id number] PO BID D/c IV lasix, - start Po lasix 20mg po daily from tomorrow Hold procardia XL and MTP Change IV ativan to Q6 hr, restraints applied, sitter, Protonix for GI prophylaxis Heparin for DVT prophylaxis will check with family about coumadin for atrial fibrillation seroquel 12.5 mg pO QHS Subjective 24 Hr Interval Summary Free Text/Dictation pt is very agitated, required restraints, Ativan was given today AM, required sitter Exam/Review of Systems Vital Signs Vitals Vital Signs Date Time Temp Pulse Resp B/P Pulse Ox O2 Delivery O2 Flow Rate FiO2 03/15/17 13:51 98.2 105 18 140/76 95 03/14/17 22:31 Nasal Cannula 2.0 Intake and Output 03/14/17 03/14/17 03/15/17 15:00 23:00 07:00 Intake Total 600 ml Balance 600 ml Exam GENERAL: Awake, agitated on restraitns HEENT: Normal. Oropharynx clear. NECK: Jugular venous distention up to the mid neck. No lymphadenopathy. LUNGS: Bibasilar crackles present with minimal expiratory wheezing. HEART: S1, S2, irregularly irregular. ABDOMEN: Soft, nontender, nondistended. Bowel sounds are present. EXTREMITIES: No clubbing, cyanosis, or edema. NEUROLOGICAL: Nonfocal, intact. agitated Results Result Diagram: 03/14/17 0735 03/14/17 0735 Medications Medications Current Medications Amiodarone HCl (Cordarone) 200 mg DAILY PO Last administered on 03/14/17 10:45 ; Admin Dose 200 MG; Start 03/13/17 at 17:00; Stop 03/15/17 at 13:53 Magnesium Oxide (Mag-Ox 400) 400 mg DAILY PO Last administered on 03/14/17 10: 46; Admin Dose 400 MG; Start 03/14/17 at 09:00 Pyridoxine HCl (Vitamin B6) 50 mg DAILY PO Last administered on 03/14/17 10:46 ; Admin Dose 50 MG; Start 03/13/17 at 17:00 Senna (Senokot) 1 tab BID PO Last administered on 03/14/17 21:14; Admin Dose 1 TAB; Start 03/13/17 at 17:00 Tamsulosin HCl (Flomax) 0.4 mg HS PO Last administered on 03/14/17 21:14; Admin Dose 0.4 MG; Start 03/13/17 at 21:00 Zolpidem Tartrate (Ambien) 5 mg QHS PRN PO INSOMNIA Last administered on 21:56; Admin Dose 5 MG; Start 03/13/17 at 12:30 Ondansetron HCl (Zofran Inj) 4 mg Q4H PRN IV NAUSEA AND/OR VOMITING; Start 03/13 at 12:30 Acetaminophen (Tylenol Tab) 650 mg Q6H PRN PO PAIN LEVEL 1-3 OR FEVER; Start at 12:30 Acetaminophen/ Hydrocodone Bitart ([place] (5/325)) 1 tab Q6H PRN PO MODERATE PAIN LEVEL 4-6; Start 03/13/17 at 12:30 Morphine Sulfate (morphine) 2 mg Q4H PRN IV SEVERE PAIN LEVEL 7-10; Start at 12:30 Heparin Sodium (Porcine) (Heparin (5000 Units/0.5 ml)) 5,000 unit Q12 SC Last administered on 03/15/17 08:37; Admin Dose 5,000 UNIT; Start 03/13/17 at 21:00 Hydralazine HCl (Apresoline) 20 mg Q4 PRN IV SBP>150 mm Hg ; Start 03/13/17 at 17:00 Famotidine (Pepcid Iv) 20 mg BID IV Last administered on 03/15/17 08:36; Admin Dose 20 MG; Start 03/13/17 at 21:00 Lorazepam (Ativan) 1 mg Q8H PRN IV AGITATION Last administered on 03/15/17 04: 42; Admin Dose 1 MG; Start 03/14/17 at 21:00 Hydralazine HCl (Apresoline) 10 mg Q4H PRN IV SBP>150 mm hg ; Start 03/14/17 at 15:30 DANIA VELASQUEZ MD March 15, 2017 14:01
--- NOTE | 2017-03-15 14:11 | RADRPT ---
PROCEDURE: US Abdomen and Retroperitoneum. CLINICAL INDICATION: Splenomegaly and cirrhosis. Renal dysfunction. TECHNIQUE: Multiple real-time longitudinal and transverse images were acquired of the patient's ab domen and retroperitoneum utilizing a curved array transducer. COMPARISON: No prior studies are available for comparison. FINDINGS: This is a limited study due to patient inability to cooperate. The liver is normal in size and normal in echogenicity. The liver has a normal smooth surface. Ther e is no focal hepatic lesion. Color Doppler and pulsed Doppler sonography demonstrate normal antegra de flow in the portal vein. The gallbladder is normal with no stones or wall thickening. The bile ducts are normal with the common bile duct measuring 3.7 mm in diameter. The spleen is normal in size. There is no focal splenic lesion. The pancreas is partially seen and is unremarkable. There is no free fluid. The right kidney measures 10.0 cm and the left kidney measures 8.9 cm. There is no renal mass. There is no hydronephrosis or calculus. The abdominal aorta is not dilated. The inferior vena cava is unremarkable. IMPRESSION: 1. Limited study. 2. No gross abnormality. RPTAT: QQ .Jeovanny Lozano MD, Date Time Electronically viewed and signed by .Jeovanny Lozano MD, on 03/15/2017 14:11 .R/
[2017-03-15] MEDS ORDERED: AMIODARONE 200 MG TAB PO ONE (14:30)
[2017-03-15] MEDS ORDERED: LORAZEPAM 2 MG INJ IV PRN (19:00)
[2017-03-15] MEDS: TAMSULOSIN (SR) 0.4 MG CAP PO SCH (22:09)
[2017-03-15] MEDS: QUETIAPINE 25 MG TAB PO SCH (22:09)
[2017-03-15] MEDS: ZOLPIDEM 5 MG TAB PO PRN (22:11)
[2017-03-16] VITALS (14 sets, daily range): BP systolic 118–170; BP diastolic 66–103; PULSE 83–99; RESP 16–20
[2017-03-16 06:17] LABS: ADD SCAN DIFF NO
[2017-03-16 06:27] LABS: BASOPHILS % 0.4 % (0.0-2.0); EOSINOPHILS % 0.4 % (0.0-7.0); HEMATOCRIT 38.1 % (42.0-52.0); HEMOGLOBIN 11.5 g/dl (14.0-18.0); LYMPHOCYTES # 1.8 10^3/ul (0.8-2.9); LYMPHOCYTES % 25.5 % (15.0-51.0); MEAN CORPUSCULAR HEMOGLOBIN 26.5 pg (29.0-33.0); MEAN CORPUSCULAR HGB CONC 30.2 g/dl (32.0-37.0); MEAN CORPUSCULAR VOLUME 87.8 fl (82.0-101.0); MEAN PLATELET VOLUME 11.3 fl (7.4-10.4); MONOCYTE # 0.5 10^3/ul (0.3-0.9); MONOCYTES % 6.8 % (0.0-11.0); NEUTROPHIL # 4.8 10^3/ul (1.6-7.5); NEUTROPHILS % 66.5 % (39.0-77.0); PLATELET COUNT 209 10^3/UL (140-415); RED BLOOD COUNT 4.34 10^6/ul (4.70-6.10); RED CELL DISTRIBUTION WIDTH 17.8 % (11.5-14.5); WHITE BLOOD COUNT 7.2 10^3/ul (4.8-10.8)
[2017-03-16 06:31] LABS: INR 1.16; PROTIME 14.8 Sec (12.2-14.2); PT RATIO 1.2
[2017-03-16 06:32] LABS: PARTIAL THROMBOPLASTIN TIME 31.7 Sec (25.0-35.0)
[2017-03-16 06:54] LABS: CALCIUM 9.4 mg/dl (8.4-10.2); CREATININE 1.48 mg/dl (0.61-1.24); POTASSIUM 3.9 mmol/L (3.5-5.1)
[2017-03-16] MEDS: HEPARIN 5,000 UNIT/0.5 ML VIAL SC SCH ×2 (08:47→21:20)
[2017-03-16] MEDS: SENNA TAB PO SCH ×2 (09:00→21:16)
[2017-03-16] MEDS: PYRIDOXINE 50 MG TAB PO SCH (09:00)
[2017-03-16] MEDS: FUROSEMIDE 20 MG TAB PO SCH (09:00)
[2017-03-16] MEDS: AMIODARONE 200 MG TAB PO SCH ×2 (09:00→21:17)
[2017-03-16] MEDS: AMLODIPINE 5 MG TAB PO SCH (09:00)
[2017-03-16] MEDS: MAGNESIUM OXIDE 400 MG TAB PO SCH (09:00)
--- NOTE | 2017-03-16 16:41 | PN ---
Date/Time of Note Date/Time of Note DATE: 03/16/17 TIME: 16:39 Assessment/Plan VTE Prophylaxis VTE Prophylaxis Intervention: heparin Lines/Catheters IV Catheter Type (from Nrs): Saline Lock Assessment/Plan Assessment/Plan 1. Hypertensive crisis.- now becomes hypotensive - today Bp stable 2. acute delirium requiring restraints and sitter due to CHF 2. Acute hypoxic respiratory distress secondary to acute congestive heart failure exacerbation causing acute pulmonary edema. 3. Acute pulmonary edema secondary to acute congestive heart failure exacerbation. 4. History of congestive heart failure. 5. History of hypertension. 6. History of atrial fibrillation, on Coumadin.- currenlty on amiodarone for rate control 7. History of ischemic cardiomyopathy and history of chronic kidney disease. 8. History of chronic obstructive pulmonary disease. PLAN: Atrial firbillation wtih HR in 100s-increase amiodarone [id number] PO BID on PO lasix 20mg po daily Hold procardia XL and MTP due to low BP, only continue amlodpine with IV hydralazine prn sitter, restraints as needed IV ativan prn Protonix for GI prophylaxis Heparin for DVT prophylaxis will check with family about coumadin for atrial fibrillation seroquel 12.5 mg pO QHS Subjective 24 Hr Interval Summary Free Text/Dictation cr improved to 1.48, pt less agitated, received iV ativan and seroquel yesterday night Exam/Review of Systems Vital Signs Vitals Vital Signs Date Time Temp Pulse Resp B/P Pulse Ox O2 Delivery O2 Flow Rate FiO2 03/16/17 16:32 99 03/16/17 16:00 97.6 17 118/66 98 03/15/17 21:42 Nasal Cannula 2.0 Intake and Output 03/15/17 03/15/17 03/16/17 15:00 23:00 07:00 Intake Total 40 ml Output Total 400 ml Balance -360 ml Exam GENERAL: Awake, agitated on restraitns HEENT: Normal. Oropharynx clear. NECK: Jugular venous distention up to the mid neck. No lymphadenopathy. LUNGS: Bibasilar crackles present with minimal expiratory wheezing. HEART: S1, S2, irregularly irregular. ABDOMEN: Soft, nontender, nondistended. Bowel sounds are present. EXTREMITIES: No clubbing, cyanosis, or edema. NEUROLOGICAL: Nonfocal, intact. agitated Results Result Diagram: 03/16/17 0535 03/16/17 0535 Results 24 hrs Laboratory Tests Test 03/16/17 05:35 White Blood Count 7.2 Red Blood Count 4.34 L Hemoglobin 11.5 L Hematocrit 38.1 L Mean Corpuscular Volume 87.8 Mean Corpuscular Hemoglobin 26.5 L Mean Corpuscular Hemoglobin Concent 30.2 L Red Cell Distribution Width 17.8 H Platelet Count 209 Mean Platelet Volume 11.3 H Neutrophils % 66.5 Lymphocytes % 25.5 Monocytes % 6.8 Eosinophils % 0.4 Basophils % 0.4 Nucleated Red Blood Cells % 0.0 Neutrophils # 4.8 Lymphocytes # 1.8 Monocytes # 0.5 Eosinophils # 0.0 Basophils # 0.0 Nucleated Red Blood Cells # 0.0 Prothrombin Time 14.8 H Prothrombin Time Ratio 1.2 INR International Normalized Ratio 1.16 Activated Partial Thromboplast Time 31.7 Sodium Level 140 Potassium Level 3.9 Chloride Level 107 Carbon Dioxide Level 23 Anion Gap 14 Blood Urea Nitrogen 25 H Creatinine 1.48 H Glucose Level 116 Calcium Level 9.4 Medications Medications Current Medications Magnesium Oxide (Mag-Ox 400) 400 mg DAILY PO Last administered on 03/14/17 10: 46; Admin Dose 400 MG; Start 03/14/17 at 09:00 Pyridoxine HCl (Vitamin B6) 50 mg DAILY PO Last administered on 03/14/17 10:46 ; Admin Dose 50 MG; Start 03/13/17 at 17:00 Senna (Senokot) 1 tab BID PO Last administered on 03/15/17 22:10; Admin Dose 1 TAB; Start 03/13/17 at 17:00 Tamsulosin HCl (Flomax) 0.4 mg HS PO Last administered on 03/15/17 22:09; Admin Dose 0.4 MG; Start 03/13/17 at 21:00 Zolpidem Tartrate (Ambien) 5 mg QHS PRN PO INSOMNIA Last administered on 22:11; Admin Dose 5 MG; Start 03/13/17 at 12:30 Ondansetron HCl (Zofran Inj) 4 mg Q4H PRN IV NAUSEA AND/OR VOMITING; Start 03/13 at 12:30 Acetaminophen (Tylenol Tab) 650 mg Q6H PRN PO PAIN LEVEL 1-3 OR FEVER; Start at 12:30 Acetaminophen/ Hydrocodone Bitart ([place] (5/325)) 1 tab Q6H PRN PO MODERATE PAIN LEVEL 4-6; Start 03/13/17 at 12:30 Morphine Sulfate (morphine) 2 mg Q4H PRN IV SEVERE PAIN LEVEL 7-10; Start at 12:30 Heparin Sodium (Porcine) (Heparin (5000 Units/0.5 ml)) 5,000 unit Q12 SC Last administered on 03/16/17 08:47; Admin Dose 5,000 UNIT; Start 03/13/17 at 21:00 Hydralazine HCl (Apresoline) 20 mg Q4 PRN IV SBP>150 mm Hg Last administered on 03/16/17 14:49; Admin Dose 20 MG; Start 03/13/17 at 17:00 Hydralazine HCl (Apresoline) 10 mg Q4H PRN IV SBP>150 mm hg ; Start 03/14/17 at 15:30 Amiodarone HCl (Cordarone) 200 mg BID PO Last administered on 03/15/17 22:09; Admin Dose 200 MG; Start 03/15/17 at 21:00 Lorazepam (Ativan) 1 mg Q6H PRN IV AGITATION Last administered on 03/16/17 02: 42; Admin Dose 1 MG; Start 03/15/17 at 19:00 Furosemide (Lasix) 20 mg DAILY PO ; Start 03/16/17 at 09:00 Amlodipine Besylate (Norvasc) 5 mg DAILY PO ; Start 03/16/17 at 09:00 Quetiapine Fumarate (Seroquel) 12.5 mg QHS PO Last administered on 03/15/17 22: 09; Admin Dose 12.5 MG; Start 03/15/17 at 21:00 DANIA VELASQUEZ MD March 16, 2017 16:41
[2017-03-16] MEDS: QUETIAPINE 25 MG TAB PO SCH (21:16)
[2017-03-16] MEDS: TAMSULOSIN (SR) 0.4 MG CAP PO SCH (21:17)
[2017-03-16] MEDS: ZOLPIDEM 5 MG TAB PO PRN (21:17)
[2017-03-17] VITALS (18 sets, daily range): BP systolic 113–178; BP diastolic 62–91; PULSE 91–109; RESP 18–20
[2017-03-17] MEDS: HEPARIN 5,000 UNIT/0.5 ML VIAL SC SCH ×2 (09:04→22:02)
[2017-03-17] MEDS: PYRIDOXINE 50 MG TAB PO SCH (09:04)
[2017-03-17] MEDS: AMLODIPINE 5 MG TAB PO SCH (09:06)
[2017-03-17] MEDS: SENNA TAB PO SCH ×2 (09:06→21:59)
[2017-03-17] MEDS: MAGNESIUM OXIDE 400 MG TAB PO SCH (09:06)
[2017-03-17] MEDS: AMIODARONE 200 MG TAB PO SCH ×2 (09:07→22:01)
[2017-03-17] MEDS: FUROSEMIDE 20 MG TAB PO SCH (09:07)
--- NOTE | 2017-03-17 12:28 | PN ---
Date/Time of Note Date/Time of Note DATE: 03/17/17 TIME: 12:26 Assessment/Plan VTE Prophylaxis VTE Prophylaxis Intervention: heparin Lines/Catheters IV Catheter Type (from Nrsg): Saline Lock Assessment/Plan Assessment/Plan 1. Hypertensive crisis.- now becomes hypotensive - today Bp stable 2. acute delirium requiring restraints and sitter due to CHF 2. Acute hypoxic respiratory distress secondary to acute congestive heart failure exacerbation causing acute pulmonary edema. 3. Acute pulmonary edema secondary to acute congestive heart failure exacerbation. 4. History of congestive heart failure. 5. History of hypertension. 6. History of atrial fibrillation, on Coumadin.- currenlty on amiodarone for rate control 7. History of ischemic cardiomyopathy and history of chronic kidney disease. 8. History of chronic obstructive pulmonary disease. PLAN: Atrial firbillation wtih HR in 100s-increase amiodarone [id number] PO BID on PO lasix 20mg po daily Hold procardia XL and MTP due to low BP, only continue amlodpine with IV hydralazine prn sitter, soft restraints, pt is more sleepy today, d/c Ativan, D/c IV morphine Protonix for GI prophylaxis Heparin for DVT prophylaxis will check with family about coumadin for atrial fibrillation seroquel 12.5 mg pO QHS Subjective 24 Hr Interval Summary Free Text/Dictation pt more sleepy today Exam/Review of Systems Vital Signs Vitals Vital Signs Date Time Temp Pulse Resp B/P Pulse Ox O2 Delivery O2 Flow Rate FiO2 03/17/17 12:20 97.5 97 20 135/78 98 03/15/17 21:42 Nasal Cannula 2.0 Intake and Output 03/16/17 03/16/17 03/17/17 15:00 23:00 07:00 Intake Total 120 ml 360 ml Balance 120 ml 360 ml Exam GENERAL: Awake, delirious on restraitns HEENT: Normal. Oropharynx clear. NECK: Jugular venous distention up to the mid neck. No lymphadenopathy. LUNGS: Bibasilar crackles present with minimal expiratory wheezing. HEART: S1, S2, irregularly irregular. ABDOMEN: Soft, nontender, nondistended. Bowel sounds are present. EXTREMITIES: No clubbing, cyanosis, or edema. NEUROLOGICAL: Nonfocal, intact. Results Result Diagram: 03/16/17 0535 03/16/17 0535 Medications Medications Current Medications Magnesium Oxide (Mag-Ox 400) 400 mg DAILY PO Last administered on 03/17/17 09: 06; Admin Dose 400 MG; Start 03/14/17 at 09:00 Pyridoxine HCl (Vitamin B6) 50 mg DAILY PO Last administered on 03/17/17 09:04 ; Admin Dose 50 MG; Start 03/13/17 at 17:00 Senna (Senokot) 1 tab BID PO Last administered on 03/17/17 09:06; Admin Dose 1 TAB; Start 03/13/17 at 17:00 Tamsulosin HCl (Flomax) 0.4 mg HS PO Last administered on 03/16/17 21:17; Admin Dose 0.4 MG; Start 03/13/17 at 21:00 Zolpidem Tartrate (Ambien) 5 mg QHS PRN PO INSOMNIA Last administered on 21:17; Admin Dose 5 MG; Start 03/13/17 at 12:30 Ondansetron HCl (Zofran Inj) 4 mg Q4H PRN IV NAUSEA AND/OR VOMITING; Start 03/13 at 12:30 Acetaminophen (Tylenol Tab) 650 mg Q6H PRN PO PAIN LEVEL 1-3 OR FEVER; Start at 12:30 Acetaminophen/ Hydrocodone Bitart ([place] (5/325)) 1 tab Q6H PRN PO MODERATE PAIN LEVEL 4-6; Start 03/13/17 at 12:30 Morphine Sulfate (morphine) 2 mg Q4H PRN IV SEVERE PAIN LEVEL 7-10 Last administered on 03/17/17 04:25; Admin Dose 2 MG; Start 03/13/17 at 12:30 Heparin Sodium (Porcine) (Heparin (5000 Units/0.5 ml)) 5,000 unit Q12 SC Last administered on 03/17/17 09:04; Admin Dose 5,000 UNIT; Start 03/13/17 at 21:00 Hydralazine HCl (Apresoline) 20 mg Q4 PRN IV SBP>150 mm Hg Last administered on 03/16/17 14:49; Admin Dose 20 MG; Start 03/13/17 at 17:00 Hydralazine HCl (Apresoline) 10 mg Q4H PRN IV SBP>150 mm hg Last administered on 03/17/17 04:25; Admin Dose 10 MG; Start 03/14/17 at 15:30 Amiodarone HCl (Cordarone) 200 mg BID PO Last administered on 03/17/17 09:07; Admin Dose 200 MG; Start 03/15/17 at 21:00 Lorazepam (Ativan) 1 mg Q6H PRN IV AGITATION Last administered on 03/16/17 02: 42; Admin Dose 1 MG; Start 03/15/17 at 19:00 Furosemide (Lasix) 20 mg DAILY PO Last administered on 03/17/17 09:07; Admin Dose 20 MG; Start 03/16/17 at 09:00 Amlodipine Besylate (Norvasc) 5 mg DAILY PO Last administered on 03/17/17 09:06 ; Admin Dose 5 MG; Start 03/16/17 at 09:00 Quetiapine Fumarate (Seroquel) 12.5 mg QHS PO Last administered on 03/16/17 21: 16; Admin Dose 12.5 MG; Start 03/15/17 at 21:00 DANIA VELASQUEZ MD March 17, 2017 12:28
[2017-03-17] MEDS: TAMSULOSIN (SR) 0.4 MG CAP PO SCH (22:00)
[2017-03-17] MEDS: QUETIAPINE 25 MG TAB PO SCH (22:00)
[2017-03-18] VITALS (12 sets, daily range): BP systolic 110–178; BP diastolic 54–89; PULSE 71–133; RESP 18–20
[2017-03-18] MEDS: AMIODARONE 200 MG TAB PO SCH ×2 (09:11→21:05)
[2017-03-18] MEDS: SENNA TAB PO SCH ×2 (09:12→21:04)
[2017-03-18] MEDS: AMLODIPINE 5 MG TAB PO SCH (09:12)
[2017-03-18] MEDS: MAGNESIUM OXIDE 400 MG TAB PO SCH (09:12)
[2017-03-18] MEDS: FUROSEMIDE 20 MG TAB PO SCH (09:12)
[2017-03-18] MEDS: PYRIDOXINE 50 MG TAB PO SCH (09:12)
[2017-03-18] MEDS: HEPARIN 5,000 UNIT/0.5 ML VIAL SC SCH ×2 (09:15→21:07)
--- NOTE | 2017-03-18 13:13 | PN ---
Date/Time of Note Date/Time of Note DATE: 03/18/17 TIME: 13:11 Assessment/Plan VTE Prophylaxis VTE Prophylaxis Intervention: heparin Lines/Catheters IV Catheter Type (from Nrsg): Saline Lock Assessment/Plan Assessment/Plan 1. Hypertensive crisis.- now becomes hypotensive - today Bp stable 2. acute delirium requiring restraints and sitter due to CHF 2. Acute hypoxic respiratory distress secondary to acute congestive heart failure exacerbation causing acute pulmonary edema. 3. Acute pulmonary edema secondary to acute congestive heart failure exacerbation. 4. History of congestive heart failure. 5. History of hypertension. 6. History of atrial fibrillation, on Coumadin.- currenlty on amiodarone for rate control 7. History of ischemic cardiomyopathy and history of chronic kidney disease. 8. History of chronic obstructive pulmonary disease. PLAN: Atrial firbillation wtih HR in 100s-increase amiodarone [id number] PO BID on PO lasix 20mg po daily Hold procardia XL and MTP due to low BP, only continue amlodpine with IV hydralazine prn sitter, soft restraints, pt is more sleepy today, d/c Ativan, D/c IV morphine Protonix for GI prophylaxis Heparin for DVT prophylaxis will check with family about coumadin for atrial fibrillation seroquel 12.5 mg pO QHS Subjective 24 Hr Interval Summary Free Text/Dictation More alert, no confusion, BP stable, pain controlled, off restraints now Exam/Review of Systems Vital Signs Vitals Vital Signs Date Time Temp Pulse Resp B/P Pulse Ox O2 Delivery O2 Flow Rate FiO2 03/18/17 12:33 81 03/18/17 11:26 97.9 20 124/74 98 03/15/17 21:42 Nasal Cannula 2.0 Intake and Output 03/17/17 03/17/17 03/18/17 15:00 23:00 07:00 Intake Total 400 ml Balance 400 ml Exam GENERAL: Awake, delirious on restraitns HEENT: Normal. Oropharynx clear. NECK: Jugular venous distention up to the mid neck. No lymphadenopathy. LUNGS: Bibasilar crackles present with minimal expiratory wheezing. HEART: S1, S2, irregularly irregular. ABDOMEN: Soft, nontender, nondistended. Bowel sounds are present. EXTREMITIES: No clubbing, cyanosis, or edema. NEUROLOGICAL: Nonfocal, intact. Results Result Diagram: 03/16/17 0535 03/16/17 0535 Medications Medications Current Medications Magnesium Oxide (Mag-Ox 400) 400 mg DAILY PO Last administered on 03/18/17 09: 12; Admin Dose 400 MG; Start 03/14/17 at 09:00 Pyridoxine HCl (Vitamin B6) 50 mg DAILY PO Last administered on 03/18/17 09:12 ; Admin Dose 50 MG; Start 03/13/17 at 17:00 Senna (Senokot) 1 tab BID PO Last administered on 03/18/17 09:12; Admin Dose 1 TAB; Start 03/13/17 at 17:00 Tamsulosin HCl (Flomax) 0.4 mg HS PO Last administered on 03/17/17 22:00; Admin Dose 0.4 MG; Start 03/13/17 at 21:00 Zolpidem Tartrate (Ambien) 5 mg QHS PRN PO INSOMNIA Last administered on 21:17; Admin Dose 5 MG; Start 03/13/17 at 12:30 Ondansetron HCl (Zofran Inj) 4 mg Q4H PRN IV NAUSEA AND/OR VOMITING; Start 03/13 at 12:30 Acetaminophen (Tylenol Tab) 650 mg Q6H PRN PO PAIN LEVEL 1-3 OR FEVER; Start at 12:30 Acetaminophen/ Hydrocodone Bitart ([place] (5/325)) 1 tab Q6H PRN PO MODERATE PAIN LEVEL 4-6; Start 03/13/17 at 12:30 Heparin Sodium (Porcine) (Heparin (5000 Units/0.5 ml)) 5,000 unit Q12 SC Last administered on 03/18/17 09:15; Admin Dose 5,000 UNIT; Start 03/13/17 at 21:00 Hydralazine HCl (Apresoline) 20 mg Q4 PRN IV SBP>150 mm Hg Last administered on 03/16/17 14:49; Admin Dose 20 MG; Start 03/13/17 at 17:00 Hydralazine HCl (Apresoline) 10 mg Q4H PRN IV SBP>150 mm hg Last administered on 03/17/17 04:25; Admin Dose 10 MG; Start 03/14/17 at 15:30 Amiodarone HCl (Cordarone) 200 mg BID PO Last administered on 03/18/17 09:11; Admin Dose 200 MG; Start 03/15/17 at 21:00 Furosemide (Lasix) 20 mg DAILY PO Last administered on 03/18/17 09:12; Admin Dose 20 MG; Start 03/16/17 at 09:00 Amlodipine Besylate (Norvasc) 5 mg DAILY PO Last administered on 03/18/17 09: 12; Admin Dose 5 MG; Start 03/16/17 at 09:00 Quetiapine Fumarate (Seroquel) 12.5 mg QHS PO Last administered on 03/17/17 22: 00; Admin Dose 12.5 MG; Start 03/15/17 at 21:00 DANIA VELASQUEZ MD March 18, 2017 13:13
[2017-03-18] MEDS: TAMSULOSIN (SR) 0.4 MG CAP PO SCH (21:04)
[2017-03-18] MEDS: QUETIAPINE 25 MG TAB PO SCH (21:05)
[2017-03-19] VITALS (9 sets, daily range): BP systolic 115–139; BP diastolic 68–75; PULSE 71–91; RESP 18–20
[2017-03-19] MEDS ORDERED: FUROSEMIDE 20 MG TAB PO SCH (09:00)
[2017-03-19] MEDS: SENNA TAB PO SCH (09:00)
[2017-03-19] MEDS: PYRIDOXINE 50 MG TAB PO SCH (09:37)
[2017-03-19] MEDS: AMLODIPINE 5 MG TAB PO SCH (09:37)
[2017-03-19] MEDS: MAGNESIUM OXIDE 400 MG TAB PO SCH (09:37)
[2017-03-19] MEDS: AMIODARONE 200 MG TAB PO SCH (09:37)
[2017-03-19] MEDS: HEPARIN 5,000 UNIT/0.5 ML VIAL SC SCH (09:38)
--- NOTE | 2017-03-19 11:21 | PN ---
Date/Time of Note Date/Time of Note DATE: 03/19/17 TIME: 11:20 Assessment/Plan VTE Prophylaxis VTE Prophylaxis Intervention: SCD's Lines/Catheters IV Catheter Type (from Nrs): Saline Lock Assessment/Plan Assessment/Plan 1. Hypertensive crisis.- now becomes hypotensive - today Bp stable 2. acute delirium requiring restraints and sitter due to CHF- now stable off restraints, BP stable 2. Acute hypoxic respiratory distress secondary to acute congestive heart failure exacerbation causing acute pulmonary edema. 3. Acute pulmonary edema secondary to acute congestive heart failure exacerbation. 4. History of congestive heart failure. 5. History of hypertension. 6. History of atrial fibrillation, on Coumadin.- currenlty on amiodarone for rate control 7. History of ischemic cardiomyopathy and history of chronic kidney disease. 8. History of chronic obstructive pulmonary disease. PLAN: Atrial firbillation wtih HR in 100s-increase amiodarone [id number] PO BID on PO lasix 20mg po daily Hold procardia XL and MTP due to low BP, only continue amlodpine with IV hydralazine prn more stable, off restraitn, on seroquel QHS Protonix for GI prophylaxis Heparin for DVT prophylaxis will check with family about coumadin for atrial fibrillation seroquel 12.5 mg pO QHS Subjective 24 Hr Interval Summary Free Text/Dictation doing ok, BP stable, afebrile, no chest pain, no SOB Exam/Review of Systems Vital Signs Vitals Vital Signs Date Time Temp Pulse Resp B/P Pulse Ox O2 Delivery O2 Flow Rate FiO2 03/19/17 09:01 71 03/19/17 07:45 97.4 18 133/73 98 03/15/17 21:42 Nasal Cannula 2.0 Intake and Output 03/18/17 03/18/17 03/19/17 15:00 23:00 07:00 Intake Total 500 ml 300 ml Balance 500 ml 300 ml Exam GENERAL: Awake, delirious on restraitns HEENT: Normal. Oropharynx clear. NECK: Jugular venous distention up to the mid neck. No lymphadenopathy. LUNGS: Bibasilar crackles present with minimal expiratory wheezing. HEART: S1, S2, irregularly irregular. ABDOMEN: Soft, nontender, nondistended. Bowel sounds are present. EXTREMITIES: No clubbing, cyanosis, or edema. NEUROLOGICAL: Nonfocal, intact. Results Result Diagram: 03/16/17 0535 03/16/17 0535 Medications Medications Current Medications Magnesium Oxide (Mag-Ox 400) 400 mg DAILY PO Last administered on 03/19/17 09: 37; Admin Dose 400 MG; Start 03/14/17 at 09:00 Pyridoxine HCl (Vitamin B6) 50 mg DAILY PO Last administered on 03/19/17 09:37 ; Admin Dose 50 MG; Start 03/13/17 at 17:00 Senna (Senokot) 1 tab BID PO Last administered on 03/18/17 21:04; Admin Dose 1 TAB; Start 03/13/17 at 17:00 Tamsulosin HCl (Flomax) 0.4 mg HS PO Last administered on 03/18/17 21:04; Admin Dose 0.4 MG; Start 03/13/17 at 21:00 Zolpidem Tartrate (Ambien) 5 mg QHS PRN PO INSOMNIA Last administered on 21:17; Admin Dose 5 MG; Start 03/13/17 at 12:30 Ondansetron HCl (Zofran Inj) 4 mg Q4H PRN IV NAUSEA AND/OR VOMITING; Start 03/13 at 12:30 Acetaminophen (Tylenol Tab) 650 mg Q6H PRN PO PAIN LEVEL 1-3 OR FEVER; Start at 12:30 Acetaminophen/ Hydrocodone Bitart ([place] (5/325)) 1 tab Q6H PRN PO MODERATE PAIN LEVEL 4-6; Start 03/13/17 at 12:30 Heparin Sodium (Porcine) (Heparin (5000 Units/0.5 ml)) 5,000 unit Q12 SC Last administered on 03/19/17 09:38; Admin Dose 5,000 UNIT; Start 03/13/17 at 21:00 Hydralazine HCl (Apresoline) 20 mg Q4 PRN IV SBP>150 mm Hg Last administered on 03/16/17 14:49; Admin Dose 20 MG; Start 03/13/17 at 17:00 Hydralazine HCl (Apresoline) 10 mg Q4H PRN IV SBP>150 mm hg Last administered on 03/17/17 04:25; Admin Dose 10 MG; Start 03/14/17 at 15:30 Amiodarone HCl (Cordarone) 200 mg BID PO Last administered on 03/19/17 09:37; Admin Dose 200 MG; Start 03/15/17 at 21:00 Amlodipine Besylate (Norvasc) 5 mg DAILY PO Last administered on 03/19/17 09: 37; Admin Dose 5 MG; Start 03/16/17 at 09:00 Quetiapine Fumarate (Seroquel) 12.5 mg QHS PO Last administered on 03/18/17 21 :05; Admin Dose 12.5 MG; Start 03/15/17 at 21:00 Furosemide (Lasix) 10 mg DAILY PO Last administered on 03/19/17 09:36; Admin Dose 10 MG; Start 03/19/17 at 09:00 DANIA VELASQUEZ MD March 19, 2017 11:21
--- NOTE | 2017-03-19 11:26 | PDOCDIS ---
Discharge Instructions CONDITION Patient Condition: Good HOME CARE INSTRUCTIONS: Special Diet: low fat/chol ACTIVITY: Activity Restrictions: Slowly Increase Activity Rest between Activity Avoid heavy lifting FOLLOW UP/APPOINTMENTS Appointments follow up with Dr.kalpesh Velasquez at [facility] DANIA VELASQUEZ MD March 19, 2017 11:26
--- NOTE | 2017-03-20 03:49 | DS ---
DATE OF ADMISSION: 03/13/2017 DATE OF DISCHARGE: 03/19/2017 FINAL DISCHARGE DIAGNOSES: 1. Hypertensive crisis. 2. Acute delirium secondary to congestive heart failure. 3. Acute hypoxic respiratory distress secondary to acute congestive heart failure exacerbation caus ing acute pulmonary edema. 4. Acute pulmonary edema secondary to acute congestive heart failure exacerbation. 5. Acute congestive heart failure exacerbation, acute on chronic, systolic and diastolic. 6. History of hypertension. 7. History of atrial fibrillation. 8. Rate control with amiodarone. 9. History of ischemic cardiomyopathy and history of chronic kidney disease. 10. History of chronic obstructive pulmonary disease. CONSULTATIONS DONE DURING THIS HOSPITALIZATION: break out worker consultation. HOSPITAL COURSE: This is an 81-year-old male with a past medical history of hypertension, hyperlipi demia, CHF, atrial fibrillation, COPD, and ischemic cardiomyopathy who presented with the complaint of shortness of breath and elevated blood pressure. The patient is noted to have acute hypoxic resp iratory distress secondary to acute congestive heart failure exacerbation. The patient was in acute pulmonary edema requiring IV Lasix diuresis and BiPAP initially. He slowly gradually improved. He r hypertensive crisis resolved. He was started on multiple antihypertensives which caused him to ward ve hypotensive episode, so his amiodarone has been stopped. He was continued on IV hydralazine p.r. n. and subsequently was resumed on his Amlodipine upon discharge to a detention facility. Due to the patient's severe deconditioning and dementia status, he was set up for detention place ment on discharge. He had a physical therapy, and the patient was sent to the SNF of his family's [facility]. DISPOSITION: To detention facility. DISCHARGE CONDITION: Stable and improved compared to admission. DISCHARGE ACTIVITIES: As tolerated, slowly resume to the normal baseline activity. DISCHARGE DIET: Low fat, low sodium diet. DISCHARGE MEDICATIONS: As per medical reconciliation. DISCHARGE FOLLOWUP PLANS AND INSTRUCTIONS: 1. The patient is to follow with Dr. Dania Thakkar at the detention [facility]. 2. The patient will be followed up by a dialysis social worker and his family at the detention [facility]. He has been explained about the discharge plan and followup instructions with the help of Han valenzuela. Dictated By: DANIA THAKKAR MD, KP/STONEY Conf#: [id number] [facility]#: [id number]
== END 2017-03-19 18:30 | DRG 291 ==
LOC: E/R 08:55 → MS4 11:31
PROVIDERS: ADMIT Internal Medicine Nephrology; ATTEND Internal Medicine Nephrology
DX: I13.0 Hypertensive heart and chronic kidney disease with heart failure and stage 1 through stage 4 chronic kidney disease, or unspecified chronic kidney disease (principal); I50.33 Acute on chronic diastolic (congestive) heart failure; J96.01 Acute respiratory failure with hypoxia; I16.9 Hypertensive crisis, unspecified; Z79.01 Long term (current) use of anticoagulants; N18.9 Chronic kidney disease, unspecified; Z86.73 Personal history of transient ischemic attack (TIA), and cerebral infarction without residual deficits; J44.9 Chronic obstructive pulmonary disease, unspecified
CPT/HCPCS: 70450; 71010; 76700; 80048; 80053; 81001; 81003; 83735; 83880; 84484; 85025; 85610; 85730; 90471; 90715; 93005; 96374; 96375; J0360; J1644; J1940; J2060; J2270; J7042; P9047